=== PATIENT | female | born 1945 | race Hispanic/Latino ===

== ENCOUNTER 2021-03-17 08:09 | Outpatient (CLI) | payer MEDICARE, OTHER | END 2021-03-17 08:10 | disposition home or self-care (01) | LOC: CSHULT 08:09 | PROVIDERS: ATTEND Internal Medicine | DX: E04.1 Nontoxic single thyroid nodule (principal); R10.13 Epigastric pain; E04.2 Nontoxic multinodular goiter; K74.60 Unspecified cirrhosis of liver; Z90.49 Acquired absence of other specified parts of digestive tract | CPT/HCPCS: 74177; 76536; 82565 ==

== ENCOUNTER 2023-12-12 09:34 | Outpatient (CLI) | payer MEDICARE, OTHER ==
[2023-12-12] MEDS ORDERED: Iopamidol 300 61% 100 ML VIAL FS ONE (13:08)
== END 2023-12-12 09:35 | disposition home or self-care (01) ==
LOC: CSHCT 09:34
PROVIDERS: ATTEND Internal Medicine
DX: R59.0 Localized enlarged lymph nodes (principal); Z98.890 Other specified postprocedural states
CPT/HCPCS: 70491; Q9967

== ENCOUNTER 2024-01-30 14:11 | Outpatient (CLI) | payer MEDICARE, OTHER | END 2024-01-30 14:12 | disposition home or self-care (01) | LOC: CSHMRI 14:11 | PROVIDERS: ATTEND Internal Medicine | DX: M51.17 Intervertebral disc disorders with radiculopathy, lumbosacral region (principal); M48.07 Spinal stenosis, lumbosacral region; M48.061 Spinal stenosis, lumbar region without neurogenic claudication | CPT/HCPCS: 72148 ==